=== PATIENT | male | born 1975 | race Caucasian/White ===

== ENCOUNTER 2017-12-24 13:45 | Inpatient (IN) | payer OTHER ==
[2017-12-24] MEDS ORDERED: MAGNESIUM HYDROXIDE 2,400 MG/30 ML ORAL.SUSP. PO (15:00)
[2017-12-24] MEDS ORDERED: oxyCODONE IR 5 MG TABLET PO (15:00)
[2017-12-24] MEDS ORDERED: PROCHLORPERAZINE 25 MG SUPP.RECT. PR (15:00)
[2017-12-24] MEDS ORDERED: MAG HYDROX/ALUMINUM HYD/SIMETH 30 ML ORAL.SUSP PO (15:00)
[2017-12-24] MEDS ORDERED: MORPHINE SULFATE 2 MG/ML DISP.SYRIN. IV (15:00)
[2017-12-24] MEDS ORDERED: PROCHLORPERAZINE 10 MG/2 ML VIAL. IV (15:00)
[2017-12-24] MEDS ORDERED: HEPARIN for IV BOLUS 10,000 UNIT/10 ML VIAL. IV (15:00)
[2017-12-24] MEDS ORDERED: HEPARIN 25,000UTS/500ML PREMIX 500 ML IV (15:00)
[2017-12-24] MEDS ORDERED: oxyCODONE/APAP 5/325 1 TAB TABLET PO (15:00)
[2017-12-24] MEDS ORDERED: IBUPROFEN 400 MG TABLET. PO (15:00)
[2017-12-24] MEDS ORDERED: CALCIUM CARBONATE 500 MG TAB.CHEW PO (15:00)
[2017-12-24] MEDS ORDERED: ONDANSETRON PF 4 MG/2 ML VIAL. IV (15:00)
[2017-12-24] MEDS ORDERED: ZOLPIDEM 5 MG TABLET. PO (15:00)
[2017-12-24] MEDS ORDERED: LABETALOL 20 MG/4 ML DISP.SYRIN. IVP (16:30)
[2017-12-24] MEDS: POTASSIUM CHLORIDE 20 MEQ TABLET.ER. PO (16:58)
[2017-12-24] MEDS: DOCUSATE SODIUM 100 MG CAPSULE. PO (19:41)
[2017-12-24] MEDS: VENLAFAXINE XR 37.5 MG CAP.ER.24H. PO (19:42)
[2017-12-24] MEDS: METOPROLOL SUCC 24HR ER 100 MG TAB.ER.24H. PO (19:43)
[2017-12-24] MEDS: cloNIDine HCL 0.2 MG TABLET PO ×2 (19:44→23:24)
[2017-12-24] MEDS: hydrALAZINE 20 MG/ML VIAL. IVP (23:23)
[2017-12-25 06:39] LABS: ADD MAN DIFF? NO
[2017-12-25 06:58] LABS: BASO # 0.1 x10^3/uL (0.0-0.2); BASO % 1 % (0-3); EOS # 0.3 x10^3/uL (0.0-0.7); EOS % 4 % (0-3); HEMATOCRIT 44.4 % (39.0-53.0); HEMOGLOBIN 15.4 g/dL (13.0-17.5); LYMPH % 26 % (24-48); MEAN CORPUSCULAR HEMOGLOBIN 30 pg (25-35); MEAN CORPUSCULAR HGB CONC 35 g/dL (31-37); MEAN CORPUSCULAR VOLUME 85 fL (79-100); MONO # 0.7 x10^3/uL (0.0-1.1); MONO % 10 % (0-9); NEUT # 4.4 x10^3uL (1.8-7.7); NEUT % 59 % (31-73); PLATELET COUNT 192 x10^3/uL (140-400); RED BLOOD COUNT 5.23 x10^6/uL (4.30-5.70); RED CELL DISTRIBUTION WIDTH 15.2 % (11.5-14.5); WHITE BLOOD COUNT 7.4 x10^3/uL (4.0-11.0)
[2017-12-25 07:07] LABS: ALBUMIN 3.3 g/dL (3.4-5.0); ALBUMIN/GLOBULIN RATIO 0.9 (1.0-1.7); ALK PHOS 59 U/L (46-116); ALT (SGPT) 86 U/L (16-63); ANION GAP 6 (6-14); AST (SGOT) 31 U/L (15-37); BLOOD UREA NITROGEN 11 mg/dL (8-26); BUN/CREATININE RATIO 11 (6-20); CALCIUM 8.4 mg/dL (8.5-10.1); CARBON DIOXIDE 30 mmol/L (21-32); CHLORIDE 106 mmol/L (98-107); GFR 81.9; GLUCOSE 132 mg/dL (70-99); MAGNESIUM 2.1 mg/dL (1.8-2.4); PHOSPHORUS 3.6 mg/dL (2.6-4.7); POTASSIUM 3.1 mmol/L (3.5-5.1); SODIUM 142 mmol/L (136-145); TOTAL BILIRUBIN 0.5 mg/dL (0.2-1.0)
[2017-12-25 07:54] LABS: TROPONINI < 0.017 ng/mL (0.000-0.055)
[2017-12-25] MEDS: DOCUSATE SODIUM 100 MG CAPSULE. PO ×2 (09:00→21:20)
[2017-12-25] MEDS: hydrALAZINE 20 MG/ML VIAL. IVP (09:08)
[2017-12-25] MEDS: PANTOPRAZOLE 40 MG TABLET.DR. PO (09:13)
[2017-12-25] MEDS: ACETAMINOPHEN 325 MG TABLET. PO (09:16)
[2017-12-25] MEDS: LOSARTAN POTASSIUM 50 MG TABLET. PO (11:43)
[2017-12-25 12:29] LABS: THYROXINE 6.8 ug/dL (4.5-12.0)
[2017-12-25] MEDS ORDERED: REGADENOSON 0.4 MG/5 ML DISP.SYRIN. IV (12:30)
[2017-12-25] MEDS: REGADENOSON 0.4 MG/5 ML DISP.SYRIN. IV (13:19)
[2017-12-25] MEDS: POTASSIUM CHLORIDE 20 MEQ TABLET.ER. PO (14:06)
[2017-12-25] MEDS ORDERED: MORPHINE SULFATE 2 MG/ML DISP.SYRIN. IV (15:45)
[2017-12-25] MEDS ORDERED: ONDANSETRON PF 4 MG/2 ML VIAL. IV (15:45)
[2017-12-25] MEDS ORDERED: hydrALAZINE 20 MG/ML VIAL. IVP (15:45)
[2017-12-25] MEDS ORDERED: ACETAMINOPHEN 325 MG TABLET. PO (15:45)
[2017-12-25] MEDS ORDERED: traMADol 50 MG TABLET PO (15:45)
[2017-12-25] MEDS ORDERED: DOCUSATE SODIUM 100 MG CAPSULE. PO (15:45)
[2017-12-25] MEDS: cloNIDine HCL 0.2 MG TABLET PO (17:41)
[2017-12-25] MEDS ORDERED: LABETALOL 20 MG/4 ML DISP.SYRIN. IVP (18:30)
[2017-12-25] MEDS: METOPROLOL TART IMMED RELEASE 50 MG TABLET. PO (21:21)
[2017-12-25] MEDS: VENLAFAXINE XR 37.5 MG CAP.ER.24H. PO (21:22)
[2017-12-26 04:36] LABS: ADD MAN DIFF? NO
[2017-12-26 04:53] LABS: BASO # 0.1 x10^3/uL (0.0-0.2); BASO % 1 % (0-3); EOS # 0.3 x10^3/uL (0.0-0.7); EOS % 4 % (0-3); HEMATOCRIT 46.4 % (39.0-53.0); HEMOGLOBIN 16.3 g/dL (13.0-17.5); LYMPH # 1.8 x10^3/uL (1.0-4.8); LYMPH % 22 % (24-48); MEAN CORPUSCULAR HEMOGLOBIN 30 pg (25-35); MEAN CORPUSCULAR HGB CONC 35 g/dL (31-37); MEAN CORPUSCULAR VOLUME 85 fL (79-100); MONO # 0.7 x10^3/uL (0.0-1.1); MONO % 9 % (0-9); NEUT # 5.1 x10^3uL (1.8-7.7); NEUT % 64 % (31-73); PLATELET COUNT 207 x10^3/uL (140-400); RED BLOOD COUNT 5.48 x10^6/uL (4.30-5.70); RED CELL DISTRIBUTION WIDTH 14.9 % (11.5-14.5)
[2017-12-26 05:15] LABS: ANION GAP 9 (6-14); BLOOD UREA NITROGEN 17 mg/dL (8-26); CALCIUM 8.8 mg/dL (8.5-10.1); CARBON DIOXIDE 28 mmol/L (21-32); CHLORIDE 107 mmol/L (98-107); CREATININE 1.1 mg/dL (0.7-1.3); GFR 73.4; GLUCOSE 122 mg/dL (70-99); POTASSIUM 3.2 mmol/L (3.5-5.1); SODIUM 144 mmol/L (136-145)
[2017-12-26] MEDS: LOSARTAN POTASSIUM 50 MG TABLET. PO (09:40)
[2017-12-26] MEDS: METOPROLOL TART IMMED RELEASE 50 MG TABLET. PO ×3 (09:41→19:12)
[2017-12-26] MEDS: DOCUSATE SODIUM 100 MG CAPSULE. PO ×2 (09:41→21:33)
[2017-12-26] MEDS: PANTOPRAZOLE 40 MG TABLET.DR. PO (09:41)
[2017-12-26] MEDS: POTASSIUM CHLORIDE 20 MEQ TABLET.ER. PO (21:33)
[2017-12-26] MEDS: cloNIDine HCL 0.2 MG TABLET PO (21:34)
[2017-12-26] MEDS: VENLAFAXINE XR 37.5 MG CAP.ER.24H. PO (21:34)
[2017-12-27 05:24] LABS: HEMATOCRIT 47.5 % (39.0-53.0); MEAN CORPUSCULAR HEMOGLOBIN 29 pg (25-35); MEAN CORPUSCULAR HGB CONC 34 g/dL (31-37); MEAN CORPUSCULAR VOLUME 86 fL (79-100); PLATELET COUNT 204 x10^3/uL (140-400); RED BLOOD COUNT 5.54 x10^6/uL (4.30-5.70); WHITE BLOOD COUNT 9.6 x10^3/uL (4.0-11.0)
[2017-12-27] MEDS: LOSARTAN POTASSIUM 50 MG TABLET. PO (08:43)
[2017-12-27] MEDS: PANTOPRAZOLE 40 MG TABLET.DR. PO (08:43)
[2017-12-27] MEDS: METOPROLOL TART IMMED RELEASE 50 MG TABLET. PO ×2 (08:44→21:17)
[2017-12-27] MEDS: DOCUSATE SODIUM 100 MG CAPSULE. PO ×2 (08:44→21:00)
[2017-12-27] MEDS ORDERED: POTASSIUM CHLORIDE 20 MEQ/15 ML ORAL LIQUID. FT (11:00)
[2017-12-27] MEDS ORDERED: POTASSIUM CHLORIDE 20 MEQ/15 ML ORAL LIQUID. PO (11:00)
[2017-12-27] MEDS: cloNIDine HCL 0.2 MG TABLET PO (13:30)
[2017-12-27] MEDS ORDERED: cloNIDine HCL 0.2 MG TABLET PO (14:00)
[2017-12-27] MEDS: hydrALAZINE 25 MG TABLET PO ×2 (15:34→21:18)
[2017-12-27] MEDS: hydroCHLOROthiazide 25 MG TABLET PO (15:34)
[2017-12-27] MEDS: VENLAFAXINE XR 37.5 MG CAP.ER.24H. PO (21:15)
[2017-12-28] MEDS: cloNIDine HCL 0.2 MG TABLET PO (00:09)
[2017-12-28 06:48] LABS: ANION GAP 10 (6-14); BLOOD UREA NITROGEN 24 mg/dL (8-26); CALCIUM 9.3 mg/dL (8.5-10.1); CARBON DIOXIDE 28 mmol/L (21-32); CHLORIDE 103 mmol/L (98-107); CREATININE 1.5 mg/dL (0.7-1.3); GFR 51.3; GLUCOSE 112 mg/dL (70-99); POTASSIUM 3.1 mmol/L (3.5-5.1); SODIUM 141 mmol/L (136-145)
[2017-12-28] MEDS: PANTOPRAZOLE 40 MG TABLET.DR. PO (10:01)
[2017-12-28] MEDS: DOCUSATE SODIUM 100 MG CAPSULE. PO (10:01)
[2017-12-28] MEDS: hydrALAZINE 25 MG TABLET PO (10:03)
[2017-12-28] MEDS: LOSARTAN POTASSIUM 50 MG TABLET. PO (10:03)
[2017-12-28] MEDS: hydroCHLOROthiazide 25 MG TABLET PO (10:04)
[2017-12-28] MEDS: METOPROLOL TART IMMED RELEASE 50 MG TABLET. PO (13:49)
[2017-12-28] MEDS: POTASSIUM CHLORIDE 20 MEQ TABLET.ER. PO (15:09)
== END 2017-12-28 19:29 | disposition home or self-care (01) | DRG 391 ==
LOC: 2 SOUTH 13:45
PROVIDERS: Internal Medicine
PROC: 5A09357 Assistance with Respiratory Ventilation, Less than 24 Consecutive Hours, Continuous Positive Airway Pressure (ICD-10-PCS; principal; 2017-12-24)
PROC: 5A09357 Assistance with Respiratory Ventilation, Less than 24 Consecutive Hours, Continuous Positive Airway Pressure (ICD-10-PCS; 2017-12-24)
PROC: 5A09357 Assistance with Respiratory Ventilation, Less than 24 Consecutive Hours, Continuous Positive Airway Pressure (ICD-10-PCS; 2017-12-24)
PROC: 5A09357 Assistance with Respiratory Ventilation, Less than 24 Consecutive Hours, Continuous Positive Airway Pressure (ICD-10-PCS; 2017-12-24)
DX: K21.9 Gastro-esophageal reflux disease without esophagitis (principal); I50.41 Acute combined systolic (congestive) and diastolic (congestive) heart failure; Z68.42 Body mass index [BMI] 45.0-49.9, adult; I11.0 Hypertensive heart disease with heart failure; E66.01 Morbid (severe) obesity due to excess calories; E87.6 Hypokalemia; R07.9 Chest pain, unspecified; Z82.49 Family history of ischemic heart disease and other diseases of the circulatory system; F17.210 Nicotine dependence, cigarettes, uncomplicated; N18.2 Chronic kidney disease, stage 2 (mild)
CPT/HCPCS: 36415; 78452; 80048; 80053; 83735; 84100; 84436; 84443; 84481; 84484; 85025; 85027; 93017; 93306; 94660; 95811; 96374; 96375; 96376; A9500; J0360; J2785

== ENCOUNTER 2019-11-10 21:58 | Inpatient (IN) | payer OTHER ==
[~2019-11-10] VITALS: Ht 175.3 cm; Wt 140.8 kg
[~2019-11-10 21:58] MED LIST: CLON0.2T PO; HYDR-2145 PO; HYDR-2868 PO; LOSA100T14 PO; METO-247 PO; METO100T7 PO; NIFE90TA49 PO; OMEP40CA45 PO; PANT20TA2 PO; VENL75CA6 PO
[2019-11-10 22:50] VITALS: BP 160/101
[2019-11-10] MEDS ORDERED: LORazepam 0.5 MG TABLET PO PRN (23:00)
[2019-11-10] MEDS ORDERED: IV DEXTROSE 5% 250 ML BAG. IV PRN (23:00)
[2019-11-10] MEDS ORDERED: DEXTROSE 50% 25 GM / 50ML DISP.SYRIN. IV PRN (23:00)
[2019-11-10] MEDS ORDERED: ZOLPIDEM 5 MG TABLET. PO PRN (23:00)
--- NOTE | 2019-11-10 23:00 | NUR ---
Admit to [facility] room 208 via EMS from [facility] ICU with Dx Chest Pain. Patient transferred for Cardiac Cath in the morning. A/O x 4. Pleasant. Steady gait. Orientated to room. Reviewed POC to include NPO after midnight and Cardiac Cath in AM. Patient verbalized understanding. Resting in chair at bedside watching TV with call light at hand.
[2019-11-11] VITALS (14 sets, daily range): BP systolic 121–181; BP diastolic 83–106
[2019-11-11] MEDS: hydrALAZINE 20 MG/ML VIAL. IVP PRN (03:39)
[2019-11-11 05:16] LABS: BASO # 0.1 x10^3/uL (0.0-0.2); BASO % 1 % (0-3); EOS # 0.4 x10^3/uL (0.0-0.7); EOS % 5 % (0-3); HEMATOCRIT 48.4 % (39.0-53.0); HEMOGLOBIN 16.7 g/dL (13.0-17.5); LYMPH # 2.2 x10^3/uL (1.0-4.8); LYMPH % 29 % (24-48); MEAN CORPUSCULAR HEMOGLOBIN 30 pg (25-35); MEAN CORPUSCULAR HGB CONC 34 g/dL (31-37); MEAN CORPUSCULAR VOLUME 88 fL (79-100); MONO # 0.7 x10^3/uL (0.0-1.1); MONO % 9 % (0-9); NEUT # 4.4 x10^3/uL (1.8-7.7); NEUT % 57 % (31-73); PLATELET COUNT 199 x10^3/uL (140-400); RED BLOOD COUNT 5.47 x10^6/uL (4.30-5.70); RED CELL DISTRIBUTION WIDTH 15.1 % (11.5-14.5); WHITE BLOOD COUNT 7.7 x10^3/uL (4.0-11.0)
[2019-11-11 05:40] LABS: ALBUMIN 3.5 g/dL (3.4-5.0); ALBUMIN/GLOBULIN RATIO 0.9 (1.0-1.7); GFR 81.2; POTASSIUM 3.3 mmol/L (3.5-5.1); TOTAL BILIRUBIN 0.7 mg/dL (0.2-1.0); TOTAL PROTEIN 7.2 g/dL (6.4-8.2)
[2019-11-11] MEDS: ACETAMINOPHEN 500 MG TABLET PO PRN ×2 (06:12→09:05)
--- NOTE | 2019-11-11 06:19 | NUR ---
BP 181/106 with HR 76. Gave Hydralazine 10mg IVP as ordered PRN Hypertension. Re-check BP 152/97 with HR 84.
[2019-11-11] MEDS: INSULIN LISPRO 300 UNITS/3 ML VIAL. SQ SCH ×3 (08:00→17:00)
[2019-11-11] MEDS: METOPROLOL SUCC 24HR ER 50 MG TAB.ER.24H. PO SCH (08:58)
[2019-11-11] MEDS: PANTOPRAZOLE 40 MG TABLET.DR. PO SCH (08:59)
[2019-11-11] MEDS: ASPIRIN ENTERIC COATED 81 MG TABLET.DR. PO SCH (08:59)
[2019-11-11] MEDS: POTASSIUM CHLORIDE 20 MEQ TABLET.ER. PO SCH ×3 (09:00→17:21)
[2019-11-11] MEDS ORDERED: POTASSIUM CHLORIDE 20 MEQ TABLET.ER. PO SCH (09:00)
[2019-11-11] MEDS: hydrALAZINE 25 MG TABLET PO SCH ×2 (09:01→20:21)
[2019-11-11] MEDS: LOSARTAN POTASSIUM 50 MG TABLET. PO SCH (09:02)
--- NOTE | 2019-11-11 10:14 | HP ---
ADMIT DATE: 11/11/2019 HISTORY OF PRESENT ILLNESS: The patient is a 44-year-old male patient who was admitted to [facility] with increasing shortness of breath that has been going on for the last few days and has been worsened particularly into the last 2 days prior to admission. He complained of some chest pain, described as heavy weight, somebody sitting on his chest. He has had complained of orthopnea and paroxysmal nocturnal dyspnea, however, denied any cough, phlegm or hemoptysis. His blood pressure has been extremely elevated even after he takes his blood pressure medication. He denied taking any high sodium diet or any nonsteroidal anti-inflammatory medication. He stated he was compliant to his medication. He was extensively investigated and on arrival his blood pressure was extremely high at 212/137. Initial lab work showed he has mild hypokalemia and his liver enzymes slightly elevated. His D-dimer was slightly high, so that he underwent CT angio of the chest which showed no pulmonary arterial thromboembolic disease, no infiltrates, and borderline sized right hilar lymph nodes. While there, he has 3 sets of cardiac enzymes, which were trending down. He was seen by the Cardiology team and has had an echocardiogram, which showed that the patient's left ventricular systolic function is normal, ejection fraction is 60-65%, he has normal left ventricular segmental wall motion, no evidence of significant pericardial effusion. Given the multiple risk factors for premature coronary artery disease and strong family history, a decision was made to transfer him [facility] with a plan to do cardiac catheterization and possible angioplasty. PAST MEDICAL HISTORY: Significant for hypertension, hyperlipidemia, type 2 diabetes mellitus, nonalcoholic steatohepatitis, morbid obesity, and obstructive sleep apnea. PAST SURGICAL HISTORY: Significant for vasectomy. ALLERGIES: He has no known drug allergies. MEDICATIONS: The patient is currently on following medications: He is on enteric-coated aspirin 81 mg once a day, atorvastatin calcium 20 mg once a day, he is on clonidine 0.2 mg twice a day, hydralazine 25 mg twice a day, metoprolol succinate 150 mg once a day, nifedipine 30 mg for a total of 90 mg once a day, losartan potassium 100 mg once a day, potassium chloride 20 mEq once a day, hydrochlorothiazide 25 mg once a day, and omeprazole 40 mg once a day. FAMILY HISTORY: He has 1 brother and sister, older in 1 sister and his sister is diabetic. His mother is still alive, has coronary artery bypass graft surgery. Father at the age of 60 because of myocardial infarction. SOCIAL HISTORY: He is , has 5 daughters and 1 son. He quit smoking about 40 years ago. He drinks alcohol occasionally. 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 REVIEW OF SYSTEMS: As per history of present illness. PHYSICAL EXAMINATION GENERAL: When I saw him this morning, he was resting slightly propped up in bed, in no apparent respiratory distress, awake, alert. On questioning him, he denied any complaint. On examined him, there was no pallor, jaundice, cyanosis or thyromegaly. No jugular venous distention. No limb edema. VITAL SIGNS: His heart rate was 84, blood pressure 152/97, temperature 98, respiratory rate was 28, and oxygen saturation was 93% on room air. The rest of clinical exam is stable. LABORATORY DATA: His lab work this morning showed a white cell count 7700, hemoglobin 16.7, hematocrit 48, MCV 88, and platelet count of 199,000. His chemistry showed a serum sodium 141, potassium 3.3, chloride 103, bicarbonate 28, anion gap of 9, BUN 19, creatinine 1, estimated GFR was 81 mL per minute, his glucose 177, and calcium was 9. Total bilirubin and alkaline phosphatase were normal. AST and ALT elevated. Total protein 7.2 and albumin 3.5. SUMMARY: In summary, this is a 44-year-old male patient who was transferred from [facility] where he presented with chest pain with typical features concerning for unstable angina. Given his strong family history of premature coronary artery disease, he was transferred to [facility] for cardiac catheterization. Other problems include: 1. Acute on chronic probably diastolic congestive heart failure. 2. Accelerated hypertension. 3. Hyperlipidemia. 4. Type 2 diabetes mellitus. 5. Hypokalemia. MAREN VARGAS MD DR: BRANDI/venecia JOB#: [id number] / [id number]
[2019-11-11] MEDS: cloNIDine HCL 0.2 MG TABLET PO SCH ×2 (12:49→20:22)
[2019-11-11] MEDS: FUROSEMIDE 40 MG/4 ML VIAL. IVP SCH ×2 (14:00→16:32)
--- NOTE | 2019-11-11 14:24 | NUR ---
SS following for discharge planning. SS reviewed pt chart. Pt is from home and is currently on room air. SS will continue to follow for discharge planning.
[2019-11-11] MEDS ORDERED: LIDOCAINE 1% PF 2 ML VIAL. ONE (14:45)
[2019-11-11] MEDS ORDERED: IOHEXOL 300 MG/ML 100ML VIAL. ONE (14:46)
[2019-11-11] MEDS ORDERED: fentaNYL PF VIAL 250 MCG/5 ML VIAL ONE (15:12)
[2019-11-11] MEDS ORDERED: NITROGLYCERIN 200 MCG/2 ML SYRINGE FOR CATH/VASC LAB. ONE (15:12)
[2019-11-11] MEDS ORDERED: HEPARIN for IV BOLUS 10,000 UNIT/10 ML VIAL. ONE (15:12)
[2019-11-11] MEDS ORDERED: VERAPAMIL 5 MG/2 ML VIAL. ONE (15:12)
[2019-11-11] MEDS ORDERED: MIDAZOLAM HCL/PF 5 MG/5 ML VIAL. ONE (15:12)
[2019-11-11] MEDS ORDERED: VERAPAMIL 5 MG/2 ML VIAL. IART ONE (15:15)
[2019-11-11] MEDS ORDERED: IOHEXOL 300 MG/ML 100ML VIAL. IART ONE (15:15)
[2019-11-11] MEDS ORDERED: LIDOCAINE 1% PF 2 ML VIAL. INJ ONE (15:15)
[2019-11-11] MEDS ORDERED: HEPARIN for IV BOLUS 10,000 UNIT/10 ML VIAL. IART ONE (15:15)
[2019-11-11] MEDS ORDERED: MIDAZOLAM HCL/PF 2 MG/2 ML VIAL. IV ONE (15:15)
[2019-11-11] MEDS ORDERED: CONTRAST GIVEN. MC PRN (15:15)
[2019-11-11] MEDS ORDERED: NITROGLYCERIN 200 MCG/2 ML SYRINGE FOR CATH/VASC LAB. IART ONE (15:15)
[2019-11-11] MEDS ORDERED: fentaNYL PF VIAL 100 MCG/2 ML VIAL IV ONE (15:15)
[2019-11-11] MEDS ORDERED: MIDAZOLAM HCL/PF 5 MG/5 ML VIAL. IV ONE (16:00)
[2019-11-11] MEDS ORDERED: fentaNYL PF VIAL 250 MCG/5 ML VIAL IV ONE (16:00)
--- NOTE | 2019-11-11 16:12 | CARD ---
MR#: [id number] Date of Study: 11/11/2019 Ordering Physician: KALEB MAY, Referring Physician: KALEB MAY Tech: TACHO UMLLER RTR APPROVED REPORT Technologist: TACHO MULLER RTR Nurse: ARRON SANTIAGO RN Procedure(s) performed: Left heart catheterization, selective coronary angiography and left ventricul ography via right transradial approach MODERATE SEDATION TIME: 46 MINUTES FLUORO TIME: 6.7 MIN DOSE: 69.9 GYCM2 CONTRAST: 110 CC OMNI INDICATION The indication(s) include : unstable angina . CSHA Clinical Frailty Scale CSHA Clinical Frailty Scale: Managing Well Heart Failure Heart Failure: No PROCEDURE NARRATIVE After explaining the risks, benefits and alternative options, informed consent was obtained from andrea ent. Patient was brought to the cardiac Edge [facility]utter and right wrist was prepped and draped in the usual fashion after confirming a positive modified Dipak's test. Arterial access was obtained in the [facility] radial artery and a 6 Korean sheath was inserted. 6 Korean Chavo and 6 Korean JL 3.5 catheters we re used to perform selective angiography of the right and left coronary arteries. 6 Korean pigtail c atheter was used to perform left ventriculography. Patient tolerated the procedure well. Hemostasis was achieved using TR band. There were no immediate complications. The following findings were not ed. FINDINGS 1. Hemodynamics: Left ventricular end-diastolic pressure of 24 mmHg consistent with mild acute on ch ronic diastolic heart failure. No pullback gradient across the aortic valve. 2. Left ventriculography: Normal left ventricle systolic function with ejection fraction estimated at 65%. No significant mitral regurgitation seen. 3. Coronary angiography: a. The left main coronary artery arose from the left sinus of Valsalva, gave rise to the left anteri or descending and left circumflex arteries and did not show any significant stenosis. b. The left anterior descending artery did not show any significant stenosis. c. The left circumflex artery did not show any significant stenosis. d. The right coronary artery was a large and dominant vessel arising from the right sinus of Valsalv a that did not show any significant stenosis. Conclusion 1. No significant coronary artery disease 2. Normal left ventricle systolic function with ejection fraction estimated at 65%. Signed by : Kaleb May, Electronically Approved : 11/11/2019 16:11:15
--- NOTE | 2019-11-11 16:12 | PDOC ---
MODERATE SEDATION ASSESSMENT RISKS/ALTERNATIVES Risks/Alternatives Risks and alternatives of this type of sedation and procedure discussed with: RISK/ALTERNATIVES: Patient H & P ON CHART H & P H & P on chart and reviewed for co-morbid conditions and appropriate labs. H&P ON CHART: Yes STATUS PREG STATUS ASSESSED: N/A MEDS/ALLERGIES REVIEWED Meds/Allergies Reviewed Medications and Allergies including time and route of recently administered narcotics and sedatives. MEDS/ALLERGIES REVIEWED: Yes ASA RATING ASA RATING: II AIRWAY ASSESSMENT Airway Assessment Airway patency, oral function limitations, presence of caps, crowns, dentures, partials, and ability to extend neck assessed. AIRWAY ASSESSMENT: Yes MALLAMPATI SCORE MALLAMPATI SCORE: II PRE-SEDATION ASSESSMENT PRE-SEDATION ASSESSMENT: Yes KALEB MAY MD Nov 11, 2019 16:12
[2019-11-11] MEDS ORDERED: 0.9 % SODIUM CHLORIDE 10 ML DISP.SYRIN. IV PRN (16:15)
[2019-11-11] MEDS: ENOXAPARIN 40 MG/0.4 ML SYRINGE. SQ SCH ×2 (16:33→20:22)
[2019-11-11] MEDS: ATORVASTATIN CALCIUM 20 MG TABLET PO SCH (20:21)
[2019-11-12 03:55] VITALS: BP 167/103
[2019-11-12 07:00] VITALS: BP 191/119
[2019-11-12] MEDS: POTASSIUM CHLORIDE 20 MEQ TABLET.ER. PO SCH ×3 (08:43→17:41)
[2019-11-12] MEDS: LOSARTAN POTASSIUM 50 MG TABLET. PO SCH (08:44)
[2019-11-12] MEDS: METOPROLOL SUCC 24HR ER 50 MG TAB.ER.24H. PO SCH (08:44)
[2019-11-12] MEDS: ASPIRIN ENTERIC COATED 81 MG TABLET.DR. PO SCH (08:45)
[2019-11-12] MEDS: cloNIDine HCL 0.2 MG TABLET PO SCH ×2 (08:46→20:43)
[2019-11-12] MEDS: ACETAMINOPHEN 500 MG TABLET PO PRN (08:46)
[2019-11-12] MEDS: ENOXAPARIN 40 MG/0.4 ML SYRINGE. SQ SCH ×2 (08:48→20:43)
[2019-11-12] MEDS: hydrALAZINE 25 MG TABLET PO SCH (08:48)
[2019-11-12] MEDS: FUROSEMIDE 40 MG/4 ML VIAL. IVP SCH ×2 (08:48→13:40)
[2019-11-12] MEDS: PANTOPRAZOLE 40 MG TABLET.DR. PO SCH (08:48)
--- NOTE | 2019-11-12 09:05 | PN ---
DATE: 11/12/2019 SUBJECTIVE: The patient was transferred yesterday from [facility] and underwent cardiac catheterization, which basically showed no significant coronary artery disease, he has normal left ventricular systolic function, ejection fraction estimated 65%. When I saw him this morning, the patient was not feeling well, he said that he was more short of breath, he had chest pain and pain in both shoulder areas. His blood pressure was high. PHYSICAL EXAMINATION: GENERAL: When I saw him this morning, he was resting slightly propped up in bed, no apparent respiratory distress. No pallor, jaundice, cyanosis or thyromegaly. No jugular venous distension. No lower limb edema. VITAL SIGNS: His heart rate was 74, blood pressure was 167/103, temperature 97.4, respiratory rate was 16 and oxygen saturation was 98%. HEAD, EYES, EARS, NOSE AND THROAT: Normocephalic, atraumatic. NECK: Supple. CARDIAC: Normal first and second heart sounds. No gallop or murmur. CHEST: Clear to auscultation. No crepitation or rhonchi. ABDOMEN: Distended, soft, nontender. No guarding or rigidity. No organomegaly. All hernial orifices are intact. Bowel sounds normal. NEUROLOGICAL: He was awake, alert, responding appropriately. All cranial nerves are intact. He moves extremities without difficulty. LABORATORY DATA: His lab work as of yesterday showed a white cell count 7700, hemoglobin 16.7, hematocrit 48, MCV 88 and platelet count of 199,000. His serum sodium 141, potassium 3.3, chloride 103, bicarbonate 28, anion gap of 10, BUN 9, creatinine 1, estimated GFR was 81 mL per minute, his glucose 177, calcium was 9. Total bilirubin and alkaline phosphatase normal. AST and ALT slightly elevated. Total protein was 7.2, albumin was 3.5. ASSESSMENT: 1. Chest pain with typical features, concerning for unstable angina; however, cardiac catheterization showed normal coronary arteries. 2. [id number] probably diastolic congestive heart failure. 3. Accelerated hypertension. 4. Hyperlipidemia. 5. Type 2 diabetes mellitus. 6. Hypokalemia. PLAN: My plan is to repeat his lab work, continue with all his antihypertensive medications, I will double the dose of hydralazine to 50 mg twice a day. MAREN VARGAS MD DR: Tank JOB#: [id number] / [id number]
[2019-11-12] MEDS: INSULIN LISPRO 300 UNITS/3 ML VIAL. SQ SCH ×3 (09:08→17:43)
[2019-11-12 09:57] LABS: HEMATOCRIT 50.2 % (39.0-53.0); HEMOGLOBIN 17.4 g/dL (13.0-17.5); RED BLOOD COUNT 5.66 x10^6/uL (4.30-5.70); RED CELL DISTRIBUTION WIDTH 15.1 % (11.5-14.5); WHITE BLOOD COUNT 8.2 x10^3/uL (4.0-11.0)
[2019-11-12 10:26] LABS: ALBUMIN 3.8 g/dL (3.4-5.0); ALBUMIN/GLOBULIN RATIO 0.9 (1.0-1.7); CALCIUM 8.8 mg/dL (8.5-10.1); GFR 81.2; POTASSIUM 3.5 mmol/L (3.5-5.1); TOTAL BILIRUBIN 0.6 mg/dL (0.2-1.0); TOTAL PROTEIN 7.9 g/dL (6.4-8.2)
[2019-11-12 11:00] VITALS: BP 168/113
--- NOTE | 2019-11-12 12:47 | PDOC ---
MAYRA JOAQUIN COT ASSEMBLER 11/12/19 1247: CARDIO Progress Notes Date and Time Date of Service 11/12/18 Time of Evaluation 1245 Subjective Subjective: No Palpitations, No Dizziness, Other (SOA improved) Comments: episode of chest pressure this morning when BP significantly elevated. Vitals Vitals Vital Signs Date Time Temp Pulse Resp B/P (MAP) Pulse Ox O2 Delivery O2 Flow Rate FiO2 11/12/19 11:00 98.2 70 16 168/113 (131) 93 Room Air 98.2 11/11/19 16:00 2.0 Weight Weight [ ] Input and Output Intake and Output Intake and Output 11/12/19 07:00 Intake Total 1260 ml Output Total 3400 ml Balance -2140 ml Intake Oral 1260 ml Output Urine Total 3400 ml # Voids 1 Laboratory Labs Laboratory Tests Test 11/11/19 16:27 11/11/19 21:12 11/12/19 07:54 11/12/19 09:20 Glucose (Fingerstick) 147 mg/dL (70-99) 281 mg/dL (70-99) 235 mg/dL (70-99) White Blood Count 8.2 x10^3/uL (4.0-11.0) Red Blood Count 5.66 x10^6/uL (4.30-5.70) Hemoglobin 17.4 g/dL (13.0-17.5) Hematocrit 50.2 % (39.0-53.0) Mean Corpuscular Volume 89 fL (79-100) Mean Corpuscular Hemoglobin 31 pg (25-35) Mean Corpuscular Hemoglobin Concent 35 g/dL (31-37) Red Cell Distribution Width 15.1 % (11.5-14.5) Platelet Count 203 x10^3/uL (140-400) Sodium Level 140 mmol/L (136-145) Potassium Level 3.5 mmol/L (3.5-5.1) Chloride Level 102 mmol/L (98-107) Carbon Dioxide Level 29 mmol/L (21-32) Anion Gap 9 (6-14) Blood Urea Nitrogen 17 mg/dL (8-26) Creatinine 1.0 mg/dL (0.7-1.3) Estimated GFR (Cockcroft-Gault) 81.2 BUN/Creatinine Ratio 17 (6-20) Glucose Level 258 mg/dL (70-99) Calcium Level 8.8 mg/dL (8.5-10.1) Total Bilirubin 0.6 mg/dL (0.2-1.0) Aspartate Amino Transf (AST/SGOT) 85 U/L (15-37) Alanine Aminotransferase (ALT/SGPT) 171 U/L (16-63) Alkaline Phosphatase 69 U/L (46-116) Total Protein 7.9 g/dL (6.4-8.2) Albumin 3.8 g/dL (3.4-5.0) Albumin/Globulin Ratio 0.9 (1.0-1.7) Test 11/12/19 12:10 Glucose (Fingerstick) 216 mg/dL (70-99) Physical Exam HEENT: Neck Supple W Full Motion Chest: Symmetric LUNGS: Clear to Auscultation Heart: S1S2, RRR Abdomen: Soft N/T Extremities: Other (trace bilateral LE edema) Neurology: alert, oriented, follow commands Assessment Assessment 1. Chest pain, had episode again this morning when blood pressure significantly elevated. Echo showed normal LV systolic function. Cath showed no significant coronary artery disease 2. Acute on chronic probable diastolic CHF; better compensated following diuresis. Cath with elevated LVEDP. Good UOP overnight 3. Accelerated hypertension; remains elevated. Increase hydralazine for better control. 4. Hyperlipidemia: Continue statin therapy 5. Diabetes, II: Per IM 6. Hypokalemia: Replaced Recommendations Increase hydralazine for blood pressure control If remains elevated tomorrow, will convert metoprolol to labetalol Continue IV diuresis Discussed 2Gm Na diet adn 2000cc FR Encouraged lifestyle modification/weight loss. Mobile Marketing Specialist consult Anticipate discharge tomorrow. KALEB MAY MD 11/12/19 1724: CARDIO Progress Notes Assessment Assessment Patient seen and examined. Agree with CHIEF PROJECTIONIST's assessment and plan. Cardiac catheterization did not show any significant coronary artery disease Acute on chronic diastolic heart failure better compensated with diuresis Agree with increasing hydralazine dose for better blood pressure control MAYRA JOAQUIN APRN Nov 12, 2019 12:47 KALEB MAY MD Nov 12, 2019 17:24
[2019-11-12 15:00] VITALS: BP 174/109
[2019-11-12 19:00] VITALS: BP 184/117
[2019-11-12] MEDS: ATORVASTATIN CALCIUM 20 MG TABLET PO SCH (20:43)
[2019-11-12 23:00] VITALS: BP 172/110
[2019-11-12] MEDS: hydrALAZINE 20 MG/ML VIAL. IVP PRN ×2 (23:48→23:54)
[2019-11-13 03:00] VITALS: BP 170/104
[2019-11-13] MEDS: ACETAMINOPHEN 500 MG TABLET PO PRN (05:58)
[2019-11-13 07:14] VITALS: BP 218/116
[2019-11-13] MEDS: PANTOPRAZOLE 40 MG TABLET.DR. PO SCH (08:14)
[2019-11-13] MEDS: LOSARTAN POTASSIUM 50 MG TABLET. PO SCH (08:15)
[2019-11-13] MEDS: ASPIRIN ENTERIC COATED 81 MG TABLET.DR. PO SCH (08:15)
[2019-11-13] MEDS: FUROSEMIDE 40 MG/4 ML VIAL. IVP SCH (08:16)
[2019-11-13] MEDS: METOPROLOL SUCC 24HR ER 50 MG TAB.ER.24H. PO SCH (08:16)
[2019-11-13] MEDS: POTASSIUM CHLORIDE 20 MEQ TABLET.ER. PO SCH ×3 (08:16→17:41)
[2019-11-13] MEDS: ENOXAPARIN 40 MG/0.4 ML SYRINGE. SQ SCH ×2 (08:17→21:17)
[2019-11-13] MEDS ORDERED: cloNIDine TTS-2 1 PATCH PATCH TD SCH (09:00)
[2019-11-13] MEDS: INSULIN LISPRO 300 UNITS/3 ML VIAL. SQ SCH ×3 (09:43→17:45)
--- NOTE | 2019-11-13 10:10 | RAD ---
EXAM: New scale and color Doppler renal artery sonogram. HISTORY: Hypertension. TECHNIQUE: New scale and color Doppler sonographic imaging of the kidneys and renal arteries with spectral waveform analysis was performed. COMPARISON: None. FINDINGS: The right kidney measures 13.8 cm [id number]. The left kidney measures 14.4 cm lfvi-[id number]. There is trace right hydronephrosis and moderate left hydronephrosis. The bladder is unremarkable. The ureteral jets are both seen. There is a cyst within the right kidney measuring 1.6 cm. There are normal peak systolic velocities within the renal arteries. There are normal renal artery to aorta velocity ratios. IMPRESSION: 1. Trace right and moderate left hydronephrosis. The ureteral jets are both seen. 2. Small simple appearing right renal cyst. 3. No Doppler evidence of greater than 60% stenosis involving the renal arteries. Electronically signed by: Yojana Abraham MD (11/13/2019 10:07 AM) [id number]
[2019-11-13 10:24] VITALS: BP 200/102
--- NOTE | 2019-11-13 10:30 | PN ---
DATE: SUBJECTIVE: The patient is resting, slightly propped up in bed, in no apparent respiratory distress. He continued to complain of severe headache and blood pressure continued to be extremely high. In fact, his blood pressure this morning was 218/116. Denied any other complaints, in particular shortness of breath. Has had his cardiac catheterization done yesterday successfully and showed no evidence of any obstructive coronary artery disease, ejection fraction was normal. PHYSICAL EXAMINATION: GENERAL: When I examined him, he looked well and was clearly in no apparent respiratory distress. No pallor, jaundice, cyanosis or thyromegaly. No jugular venous distension. No lower limb edema. VITAL SIGNS: His heart rate was 71, blood pressure was 218/116, temperature 97.8, respiratory rate was 18 and oxygen saturation was 91% on room air. The rest of clinical exam is stable. His intake was 1260, output was 3400. LABORATORY DATA: As of yesterday, his white cell count was 8200, hemoglobin 17, hematocrit 50, MCV 89 and platelet count 103,000. Serum sodium 140, potassium 3.5, chloride 102, bicarbonate 29, anion gap of 9, BUN 17, creatinine 1, estimated GFR was 81 mL per minute. His glucose was 158, calcium was 8.8. Total bilirubin and alkaline phosphatase was normal. AST, ALT slightly elevated. Total protein was 7.9, albumin 3.8. ASSESSMENT AND PLAN: Chest pain with normal coronary arteries and echocardiogram showed normal left ventricular systolic function. Acute on chronic diastolic congestive heart failure, seems to be much better controlled. Accelerated hypertension for which I have increased hydralazine to 100 mg twice a day and also the Procardia to 60 mg twice a day. I discontinued the oral clonidine. Because of possible rebound phenomenon, I put him on a TTS 2 patch. Hyperlipidemia, for which he is on statin. Type 2 diabetes mellitus, seems to be reasonably, although not optimally controlled. Hypokalemia, resolving. I also ordered renal artery Doppler to rule out renal artery stenosis and repeat all his labs tomorrow morning. MAREN VARGAS MD DR: BRANDI/venecia JOB#: [id number] / [id number]
[2019-11-13] MEDS: LABETALOL HCL 200 MG TABLET PO SCH ×2 (11:09→21:16)
--- NOTE | 2019-11-13 13:35 | PDOC ---
CARDIO Progress Notes Date and Time Date of Service 11/13/19 Time of Evaluation 1300 Subjective Subjective: No Chest Pain, No Palpitations, No Dizziness, Other (SOA improved) Vitals Vitals Vital Signs Date Time Temp Pulse Resp B/P (MAP) Pulse Ox O2 Delivery O2 Flow Rate FiO2 11/13/19 11:09 75 200/102 11/13/19 10:24 97.9 18 92 Room Air 97.9 Weight Weight [ ] Input and Output Intake and Output Intake and Output 11/13/19 07:00 Intake Total 1220 ml Output Total 3775 ml Balance -2555 ml Intake Oral 1220 ml Output Urine Total 3775 ml # Voids 1 Laboratory Labs Laboratory Tests Test 11/12/19 17:39 11/12/19 21:07 11/13/19 07:18 11/13/19 11:48 Glucose (Fingerstick) 219 mg/dL (70-99) 166 mg/dL (70-99) 205 mg/dL (70-99) 302 mg/dL (70-99) Physical Exam HEENT: Neck Supple W Full Motion Chest: Symmetric LUNGS: Clear to Auscultation Heart: S1S2, RRR Abdomen: Soft N/T Extremities: Other (trace bilateral LE edema) Neurology: alert, oriented, follow commands Assessment Assessment 1. Chest pain, had episode again this morning when blood pressure significantly elevated. Echo showed normal LV systolic function. Cath showed no significant coronary artery disease 2. Acute on chronic probable diastolic CHF; better compensated following diuresis. Cath with elevated LVEDP. Good UOP overnight again 3. Accelerated hypertension; remains elevated. 4. Hyperlipidemia: Continue statin therapy 5. Diabetes, II: Per IM 6. Hypokalemia: Replaced Recommendations Convert lasix to oral Hydralazine increased Stop metoprolol. Add labetalol for better rate control MAYRA JOAQUIN APRN Nov 13, 2019 13:35
--- NOTE | 2019-11-13 13:43 | PDOC2 ---
CONSULT Date of Consult Date of Consult DATE: 11/13/19 TIME: 13:34 Reason for Consult Reason for Consult: HTN AND HYDRONEPROSIS Referring Physician Referring Physician: ALICIA Identification/Chief Complaint Chief Complaint SOB Source Source: Chart review, Patient History of Present Illness Reason for Visit: THIS IS A 44 YR OLD WITH SOB AND CHEST PAIN. CURRENTLY UNDERGOING CARDIOLOGY EVALUATION. NOTED TO HAVE DIFFICULT TO CONTROL HTN AND MILD HYPOKALEMIA ON ADMIT. RENAL FXN WNL. IMAGING OF RENAL ARTERY WAS WNL BUT SHOWED BILATERAL HYDRONEPHROSIS. HAS HX OF DM II AND HTN OF LONG STANDING DURATION BUT HAS NOT HAD ANY CKD. NO NEPHROTOXINS. NO HX DIAGNOSIS. BUT DOES STATE THAT HE HAS DIFFICULTY EMPTYING HIS BLADDER Past Medical History Cardiovascular: HTN Heme/Onc: No pertinent hx Hepatobiliary: No pertinent hx Psych: No pertinent hx Rheumatologic: No pertinent hx Infectious disease: No pertinent hx Renal/: No pertinent hx Endocrine: No pertinent hx Past Surgical History Past Surgical History: No pertinent history Family History Family History: Coronary Artery Disease Social History ALCOHOL: none Drugs: None Current Medications Current Medications Current Medications Acetaminophen (Tylenol) 500 mg PRN Q6HRS PRN PO MILD PAIN / TEMP Last administered on 11/13/19at 05:58; Start 11/10/19 at 22:45 Aspirin (Ecotrin) 81 mg DAILYWBKFT PO Last administered on 11/13/19at 08:15; Start 11/11/19 at 08:00 Atorvastatin Calcium (Lipitor) 20 mg QHS PO Last administered on 11/12/19at 20:43; Start 11/11/19 at 21:00 Insulin Human Lispro (HumaLOG) 0-5 UNITS TIDWMEALS SQ Last administered on 11/13/19at 12:24; Start 11/11/19 at 08:00 Dextrose (Dextrose 50%-Water Syringe) 12.5 gm PRN Q15MIN PRN IV SEE COMMENTS; Start 11/10/19 at 23:00 Dextrose (Iv Dextrose 5%) 250 ml PRN Q15MIN PRN IV SEE COMMENTS; Start 11/10/19 at 23:00 Enoxaparin Sodium (Lovenox 40mg Syringe) 40 mg BID SQ Last administered on 11/13/19at 08:17; Start 11/11/19 at 09:00 Furosemide (Lasix) 40 mg BID92 IVP Last administered on 11/13/19at 08:16; Start 11/11/19 at 09:00 Lorazepam (Ativan) 0.5 mg PRN Q8HRS PRN PO ANXIETY / AGITATION; Start 11/10/19 at 23:00 Losartan Potassium (Cozaar) 100 mg DAILY PO Last administered on 11/13/19at 08:15; Start 11/11/19 at 09:00 Metoprolol Succinate (Toprol Xl) 150 mg DAILY PO Last administered on 11/13/19at 08:16; Start 11/11/19 at 09:00; Stop 11/13/19 at 10:57; Status DC Nifedipine (Procardia Xl) 90 mg DAILY PO Last administered on 11/12/19at 08:45; Start 11/11/19 at 09:00; Stop 11/13/19 at 08:18; Status DC Pantoprazole Sodium (Protonix) 40 mg DAILYAC PO Last administered on 11/13/19at 08:14; Start 11/11/19 at 07:30 Potassium Chloride (Klor-Con) 20 meq TID PO Last administered on 11/11/19at 08:59; Start 11/11/19 at 09:00; Stop 11/11/19 at 16:04; Status DC Zolpidem Tartrate (Ambien) 5 mg PRN QHS PRN PO INSOMNIA, MAY REPEAT IN 1HR; Start 11/10/19 at 23:00 Clonidine HCl (Catapres) 0.2 mg BID PO Last administered on 11/12/19at 20:43; Start 11/11/19 at 09:00; Stop 11/13/19 at 08:24; Status DC Hydralazine HCl (Apresoline) 25 mg BID PO Last administered on 11/12/19at 08:48; Start 11/11/19 at 09:00; Stop 11/12/19 at 12:51; Status DC Hydralazine HCl (Apresoline Inj) 10 mg PRN Q3HRS PRN IVP ELEVATED BP, SEE COMMENTS Last administered on 11/12/19at 23:54; Start 11/10/19 at 23:15 Potassium Chloride (Klor-Con) 20 meq TIDWMEALS PO Last administered on 11/13/19at 12:20; Start 11/11/19 at 09:00 Lidocaine HCl (Xylocaine-Mpf 1% 2ml Vial) 2 ml STK-MED ONCE .ROUTE ; Start 11/11/19 at 14:45; Stop 11/11/19 at 14:45; Status DC Heparin Sodium/ Sodium Chloride 500 ml @ As Directed STK-MED ONCE .ROUTE ; Start 11/11/19 at 14:45; Stop 11/11/19 at 14:45; Status DC Iohexol (Omnipaque 300 Mg/ml) 100 ml STK-MED ONCE .ROUTE ; Start 11/11/19 at 14:46; Stop 11/11/19 at 14:46; Status DC Nitroglycerin (Nitroglycerin) 200 mcg 1X ONCE IART Last administered on 11/11/19at 15:15; Start 11/11/19 at 15:15; Stop 11/11/19 at 15:16; Status DC Verapamil HCl (Verapamil) 2.5 mg 1X ONCE IART Last administered on 11/11/19at 15:15; Start 11/11/19 at 15:15; Stop 11/11/19 at 15:16; Status DC Heparin Sodium (Porcine) (Heparin Sodium) 2,500 unit 1X ONCE IART Last administered on 11/11/19at 15:15; Start 11/11/19 at 15:15; Stop 11/11/19 at 15:16; Status DC Heparin Sodium/ Sodium Chloride (HEPARIN for ARTERIAL LINE FLUSH) 1,000 unit 1X ONCE IART Last administered on 11/11/19at 15:15; Start 11/11/19 at 15:15; Stop 11/11/19 at 15:16; Status DC Heparin Sodium/ Sodium Chloride (HEPARIN for ARTERIAL LINE FLUSH) 1,000 unit 1X ONCE IART Last administered on 11/11/19at 15:15; Start 11/11/19 at 15:15; Stop 11/11/19 at 15:16; Status DC Midazolam HCl (Versed) 2 mg 1X ONCE IV ; Start 11/11/19 at 15:15; Stop 11/11/19 at 15:16; Status Cancel Fentanyl Citrate (Fentanyl 2ml Vial) 100 mcg 1X ONCE IV ; Start 11/11/19 at 15:15; Stop 11/11/19 at 15:16; Status Cancel Iohexol (Omnipaque 300 Mg/ml) 100 ml 1X ONCE IART Last administered on 11/11/19at 15:15; Start 11/11/19 at 15:15; Stop 11/11/19 at 15:16; Status DC Lidocaine HCl (Xylocaine-Mpf 1% 2ml Vial) 2 ml 1X ONCE INJ Last administered on 11/11/19at 15:15; Start 11/11/19 at 15:15; Stop 11/11/19 at 15:16; Status DC Fentanyl Citrate (Fentanyl 5ml Vial) 250 mcg STK-MED ONCE .ROUTE ; Start 11/11/19 at 15:12; Stop 11/11/19 at 15:12; Status DC Midazolam HCl (Versed) 5 mg STK-MED ONCE .ROUTE ; Start 11/11/19 at 15:12; Stop 11/11/19 at 15:12; Status DC Heparin Sodium (Porcine) (Heparin Sodium) 10,000 unit STK-MED ONCE .ROUTE ; Start 11/11/19 at 15:12; Stop 11/11/19 at 15:12; Status DC Verapamil HCl (Verapamil) 5 mg STK-MED ONCE .ROUTE ; Start 11/11/19 at 15:12; Stop 11/11/19 at 15:12; Status DC Nitroglycerin (Nitroglycerin) 200 mcg STK-MED ONCE .ROUTE ; Start 11/11/19 at 15:12; Stop 11/11/19 at 15:13; Status DC Info (CONTRAST GIVEN -- Rx MONITORING) 1 each PRN DAILY PRN MC SEE COMMENTS; Start 11/11/19 at 15:15; Stop 11/13/19 at 15:14 Midazolam HCl (Versed) 5 mg 1X ONCE IV Last administered on 11/11/19at 16:00; Start 11/11/19 at 16:00; Stop 11/11/19 at 16:01; Status DC Fentanyl Citrate (Fentanyl 5ml Vial) 250 mcg 1X ONCE IV Last administered on 11/11/19at 16:00; Start 11/11/19 at 16:00; Stop 11/11/19 at 16:01; Status DC Sodium Chloride (Normal Saline Flush) 3 ml QSHIFT PRN IV AFTER MEDS AND BLOOD D RAWS; Start 11/11/19 at 16:15 Hydralazine HCl (Apresoline) 50 mg TID PO Last administered on 11/12/19at 20:43; Start 11/12/19 at 14:00; Stop 11/13/19 at 08:18; Status DC Hydralazine HCl (Apresoline) 100 mg TID PO ; Start 11/13/19 at 09:00; Stop 11/13/19 at 08:42; Status DC Nifedipine (Procardia Xl) 60 mg BID PO ; Start 11/13/19 at 09:00; Stop 11/13/19 at 08:42; Status DC Clonidine HCl (Catapres Tts-2) 1 patch WEEKLY TD Last administered on 11/13/19at 09:38; Start 11/13/19 at 09:00 Hydralazine HCl (Apresoline) 100 mg TID PO ; Start 11/13/19 at 14:00 Nifedipine (Procardia Xl) 60 mg BID PO ; Start 11/13/19 at 21:00 Hydralazine HCl (Apresoline) 50 mg 1X PO ; Start 11/13/19 at 08:45; Status Cancel Hydralazine HCl (Apresoline) 50 mg 1X ONCE PO Last administered on 11/13/19at 09:49; Start 11/13/19 at 10:00; Stop 11/13/19 at 10:01; Status DC Labetalol HCl (Trandate) 200 mg BID PO Last administered on 11/13/19at 11:09; Start 11/13/19 at 11:00 Active Scripts Active Reported Hydralazine Hcl 25 Mg Tablet 1 Tab PO BID Protonix (Pantoprazole Sodium) 20 Mg Tablet.dr 40 Mg PO DAILY Losartan Potassium 100 Mg Tablet 100 Mg PO DAILY Hydrochlorothiazide Tablet (Hydrochlorothiazide) 25 Mg Tablet 2 Tab PO DAILY Metoprolol Tartrate 100 Mg Tablet 1.5 Tab PO BID Nifedipine Er (Nifedipine) 90 Mg Tab.er.24 90 Mg PO HS Venlafaxine Hcl Er (Venlafaxine Hcl) 75 Mg Cap.er.24h 1 Cap PO HS Clonidine Hcl 0.2 Mg Tablet 0.2 Mg PO PRN DAILY PRN Clonidine Hcl 0.2 Mg Tablet 1 Tab PO QHS Allergies Allergies: Coded Allergies: No Known Drug Allergies (Unverified , 12/24/17) ROS General: YES: Fatigue Eyes: Yes Decreased vision ALLERGY AND IMMUNOLOGY: YES: Seasonal Allergies Respiratory: YES: Cough, Shortness of breath Cardiovascular: yes Chest Pain Gastrointestinal: Yes Constipation Genitourinary: YES Retention Musculoskeletal: Yes Muscular Weakness Neurological: Yes Weakness Skin: Yes Dry Skin Physical Exam General: Alert, Oriented X3, Cooperative, No acute distress HEENT: Atraumatic, PERRLA, EOMI Lungs: Clear to auscultation Heart: Regular rate, Normal S2 Abdomen: Normal bowel sounds, Soft, No tenderness Extremities: No cyanosis Skin: No breakdown Neuro: Normal speech, Sensation intact Psych/Mental Status: Mental status NL, Mood NL MUSCULOSKELETAL: No joint tenderness, No deformity Vitals VITALS Vital Signs Date Time Temp Pulse Resp B/P (MAP) Pulse Ox O2 Delivery O2 Flow Rate FiO2 11/13/19 11:09 75 200/102 11/13/19 10:24 97.9 18 92 Room Air 97.9 Labs Labs Laboratory Tests Test 11/11/19 16:27 11/11/19 21:12 11/12/19 07:54 11/12/19 09:20 Glucose (Fingerstick) 147 mg/dL (70-99) 281 mg/dL (70-99) 235 mg/dL (70-99) White Blood Count 8.2 x10^3/uL (4.0-11.0) Red Blood Count 5.66 x10^6/uL (4.30-5.70) Hemoglobin 17.4 g/dL (13.0-17.5) Hematocrit 50.2 % (39.0-53.0) Mean Corpuscular Volume 89 fL (79-100) Mean Corpuscular Hemoglobin 31 pg (25-35) Mean Corpuscular Hemoglobin Concent 35 g/dL (31-37) Red Cell Distribution Width 15.1 % (11.5-14.5) Platelet Count 203 x10^3/uL (140-400) Sodium Level 140 mmol/L (136-145) Potassium Level 3.5 mmol/L (3.5-5.1) Chloride Level 102 mmol/L (98-107) Carbon Dioxide Level 29 mmol/L (21-32) Anion Gap 9 (6-14) Blood Urea Nitrogen 17 mg/dL (8-26) Creatinine 1.0 mg/dL (0.7-1.3) Estimated GFR (Cockcroft-Gault) 81.2 BUN/Creatinine Ratio 17 (6-20) Glucose Level 258 mg/dL (70-99) Calcium Level 8.8 mg/dL (8.5-10.1) Total Bilirubin 0.6 mg/dL (0.2-1.0) Aspartate Amino Transf (AST/SGOT) 85 U/L (15-37) Alanine Aminotransferase (ALT/SGPT) 171 U/L (16-63) Alkaline Phosphatase 69 U/L (46-116) Total Protein 7.9 g/dL (6.4-8.2) Albumin 3.8 g/dL (3.4-5.0) Albumin/Globulin Ratio 0.9 (1.0-1.7) Test 11/12/19 12:10 11/12/19 17:39 11/12/19 21:07 11/13/19 07:18 Glucose (Fingerstick) 216 mg/dL (70-99) 219 mg/dL (70-99) 166 mg/dL (70-99) 205 mg/dL (70-99) Test 11/13/19 11:48 Glucose (Fingerstick) 302 mg/dL (70-99) Laboratory Tests Test 11/12/19 17:39 11/12/19 21:07 11/13/19 07:18 11/13/19 11:48 Glucose (Fingerstick) 219 mg/dL (70-99) 166 mg/dL (70-99) 205 mg/dL (70-99) 302 mg/dL (70-99) Assessment/Plan Assessment/Plan IMP UNCONTROLLED HTN BILATERAL HYDRONEPHROSIS URINARY RETENTION PER HX CHEST PAIN WITH NL LV FUNCTION AND NL CATH HYPOKALEMIA DM II PLAN CONT ANTIHYPERTENSIVES REPLACE K NEEDED CT ABD AND PELVIS TO LOOK FOR ADRENAL MASS AND TO LOOK FOR POSSIBLE EXTRINSIC URETERAL COMPRESSION ALSO BLADDER SCAN MAY NEED PANCHO/PRA RATIO DONE MAY NEED TO RESUME PO CLONIDINE IT WOULD HAVE BETTER BIOAVAILABILITY WILL FOLLOW WOODY CASTRO MD Nov 13, 2019 13:43
[2019-11-13] MEDS: FUROSEMIDE 40 MG TABLET. PO SCH (14:24)
[2019-11-13 14:31] VITALS: BP 186/98
--- NOTE | 2019-11-13 16:59 | RAD ---
CT STUDY OF THE ABDOMEN AND PELVIS WITHOUT CONTRAST CLINICAL INDICATIONS:Hydronephrosis of the left side seen on recent renal sonogram. TECHNIQUE: Noncontrast helical CT scanning of the abdomen and pelvis was performed. Without contrast, the sensitivity to detect organ pathology and GI tract pathology is decreased. PQRS compliance Statement One or more of the following individualized dose reduction techniques were utilized for this study: 1. Automated exposure control 2. Adjustment of the mA and/or kV according to patient size 3. Use of iterative reconstruction technique COMPARISON: Renal sonogram dated November 13, 2019. FINDINGS: The liver and spleen and pancreas are homogeneous in appearance on this noncontrast study. The spleen is mildly enlarged measuring 14.8 cm in size. The gallbladder is normal and no extrahepatic biliary ductal dilatation is seen. No renal stone or ureteral stone is seen on either side. Mild left-sided hydronephrosis is seen down to the UPJ. No hydroureter is evident. No renal mass is seen on either side on this noncontrast study. No perinephric inflammation or free fluid is evident. The urinary bladder is not abnormally distended. Urinary bladder wall is smooth. No focal aneurysmal dilatation of the abdominal aorta is seen. No enlarged abdominal or pelvic lymphadenopathy is evident. The appendix and terminal ileum are normal. No obstructive bowel pattern is seen. Umbilical hernia is seen containing only fat. No inflammation is seen here. No free fluid or free air or mesenteric edema is evident. Subcutaneous soft tissue air is seen within the left side of the abdomen which may be related to subcutaneous injections. Calcified granuloma of the right lower lobe is seen. No lytic process is seen. IMPRESSION: Mild left-sided hydronephrosis down to the UPJ. No urinary tract stone or hydroureter is seen. Mild splenomegaly. Electronically signed by: Gordon Torres MD (11/13/2019 4:56 PM) [id number]
[2019-11-13 19:55] VITALS: BP 191/90
[2019-11-13] MEDS: ATORVASTATIN CALCIUM 20 MG TABLET PO SCH (21:16)
[2019-11-13 23:40] VITALS: BP 169/98
[2019-11-14 03:40] VITALS: BP 146/89
[2019-11-14 07:00] VITALS: BP 183/111
[2019-11-14 09:10] LABS: CALCIUM 9.1 mg/dL (8.5-10.1); GFR 81.2; MAGNESIUM 2.1 mg/dL (1.8-2.4); POTASSIUM 3.4 mmol/L (3.5-5.1)
--- NOTE | 2019-11-14 09:35 | PN ---
DATE: SUBJECTIVE: The patient is resting, slightly propped up, sleeping comfortably, in no apparent distress. On questioning him, he stated his headache is much less and not any shortness of breath, has been up and about. He was seen by Dr. Sharma yesterday who ordered a CT scan of the abdomen and pelvis, which showed that the patient has mild left-sided hydronephrosis down to ureteropelvic junction, but no urinary tract stones or hydroureter is seen. He has mild splenomegaly. His renal artery duplex showed trace right and moderate left hydronephrosis. The ureteral jets are both seen. He has small simple appearing right renal cyst, no Doppler evidence of greater than 60% stenosis involving the renal arteries. I did adjust his medication yesterday and increased his hydralazine and he is now on losartan. He is on nifedipine 60 mg twice a day, hydralazine 100 mg three times a day, labetalol 200 mg twice a day, clonidine patch TTS-2 and losartan 100 mg once a day. PHYSICAL EXAMINATION: GENERAL: When I examined him this morning, he looked well and was clearly in no apparent respiratory distress. No pallor, jaundice, cyanosis or thyromegaly. No jugular venous distention. No limb edema. VITAL SIGNS: His heart rate was 90, blood pressure was 146/89, temperature 98.3, respiratory rate was 20, and oxygen saturation was 96%. The rest of clinical exam is stable. ASSESSMENT: 1. Chest pain with normal coronary arteries and echocardiogram showed normal left ventricular systolic function. 2. Acute on chronic diastolic congestive heart failure seems to be much better controlled. 3. Accelerated hypertension for which we made adjustment of his antihypertensive medications. He is now on hydralazine 100 mg three times a day, Procardia 60 mg twice a day, labetalol 200 mg twice a day, losartan potassium 100 mg once a day. He is also on clonidine TTS patch. 4. Hyperlipidemia for which he is on statin. 5. Type 2 diabetes mellitus, seems to be reasonably controlled. 6. Hypokalemia, resolved. MAREN VARGAS MD DR: BRANDI/venecia JOB#: [id number] / [id number]
[2019-11-14] MEDS: ASPIRIN ENTERIC COATED 81 MG TABLET.DR. PO SCH (10:01)
[2019-11-14] MEDS: PANTOPRAZOLE 40 MG TABLET.DR. PO SCH (10:02)
[2019-11-14] MEDS: LOSARTAN POTASSIUM 50 MG TABLET. PO SCH (10:02)
[2019-11-14] MEDS: POTASSIUM CHLORIDE 20 MEQ TABLET.ER. PO SCH ×3 (10:03→18:09)
[2019-11-14] MEDS: LABETALOL HCL 200 MG TABLET PO SCH ×2 (10:03→22:01)
[2019-11-14] MEDS: FUROSEMIDE 40 MG TABLET. PO SCH (10:03)
[2019-11-14] MEDS: ENOXAPARIN 40 MG/0.4 ML SYRINGE. SQ SCH ×2 (10:04→22:03)
[2019-11-14] MEDS: INSULIN LISPRO 300 UNITS/3 ML VIAL. SQ SCH ×3 (10:09→18:23)
[2019-11-14] MEDS: ACETAMINOPHEN 500 MG TABLET PO PRN (10:11)
[2019-11-14 11:00] VITALS: BP 185/98
--- NOTE | 2019-11-14 12:57 | PDOC ---
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 1257: CARDIO Progress Notes Date and Time Date of Service 11/14/19 Time of Evaluation 1215 Subjective Subjective: No Chest Pain, No Palpitations, No Dizziness, Other (feels sightly more SOA this morning) Vitals Vitals Vital Signs Date Time Temp Pulse Resp B/P (MAP) Pulse Ox O2 Delivery O2 Flow Rate FiO2 11/14/19 11:00 98.4 96 18 185/98 (127) 93 Room Air 98.4 Weight Weight [ ] Input and Output Intake and Output Intake and Output 11/14/19 07:00 Intake Total 3540 ml Output Total 1550 ml Balance 1990 ml Intake Oral 3540 ml Output Urine Total 1550 ml Laboratory Labs Laboratory Tests Test 11/13/19 16:47 11/13/19 21:21 11/14/19 08:13 11/14/19 08:40 Glucose (Fingerstick) 285 mg/dL (70-99) 221 mg/dL (70-99) 223 mg/dL (70-99) Sodium Level 141 mmol/L (136-145) Potassium Level 3.4 mmol/L (3.5-5.1) Chloride Level 103 mmol/L (98-107) Carbon Dioxide Level 29 mmol/L (21-32) Anion Gap 9 (6-14) Blood Urea Nitrogen 17 mg/dL (8-26) Creatinine 1.0 mg/dL (0.7-1.3) Estimated GFR (Cockcroft-Gault) 81.2 Glucose Level 232 mg/dL (70-99) Calcium Level 9.1 mg/dL (8.5-10.1) Magnesium Level 2.1 mg/dL (1.8-2.4) Test 11/14/19 12:08 Glucose (Fingerstick) 243 mg/dL (70-99) Physical Exam HEENT: Neck Supple W Full Motion Chest: Symmetric LUNGS: Clear to Auscultation Heart: S1S2, RRR Abdomen: Soft N/T Extremities: Other (trace bilateral LE edema) Neurology: alert, oriented, follow commands Assessment Assessment 1. Chest pain; Echo showed normal LV systolic function. Cath showed no significant coronary artery disease 2. Acute on chronic probable diastolic CHF; compensated following diuresis. 3. Accelerated hypertension; remains elevated. 4. Hyperlipidemia: Continue statin therapy 5. Diabetes, II: Per IM 6. Hypokalemia: Replaced 7. Left-sided hydronephrosis, mild Recommendations Lasix therapy Add imdur Increase labetalol if BP remains elevated Will discuss further with primary cardiology KALEB MAY MD 11/14/192056: CARDIO Progress Notes Assessment Assessment Patient seen and examined. Agree with TEACHING ASSOCIATE's assessment and plan. Ac on chr diast HF better compensated BP continues to be elevated - suspect primary hyperaldosteronism due to resistant HTN and hypokalemia Check renin and pawel levels and start spironolactone MAYRA JOAQUIN APRN Nov 14, 2019 12:57 KALEB MAY MD Nov 14, 2019 20:57
[2019-11-14] MEDS: ISOSORBIDE MONONITRATE ER 30 MG TAB.ER.24H PO SCH (14:35)
--- NOTE | 2019-11-14 14:47 | PDOC ---
Renal-Progress Notes Subjective Notes Notes NO NEW COMPLAINTS History of Present Illness Hx of present illness STABLE Vitals Vitals Vital Signs Date Time Temp Pulse Resp B/P (MAP) Pulse Ox O2 Delivery O2 Flow Rate FiO2 11/14/19 14:35 96 185/98 11/14/19 11:00 98.4 18 93 Room Air 98.4 Weight Weight [ ] I.O. Intake and Output Intake and Output 11/14/19 07:00 Intake Total 3540 ml Output Total 1550 ml Balance 1990 ml Intake Oral 3540 ml Output Urine Total 1550 ml Labs Labs Laboratory Tests Test 11/13/19 16:47 11/13/19 21:21 11/14/19 08:13 11/14/19 08:40 Glucose (Fingerstick) 285 mg/dL (70-99) 221 mg/dL (70-99) 223 mg/dL (70-99) Sodium Level 141 mmol/L (136-145) Potassium Level 3.4 mmol/L (3.5-5.1) Chloride Level 103 mmol/L (98-107) Carbon Dioxide Level 29 mmol/L (21-32) Anion Gap 9 (6-14) Blood Urea Nitrogen 17 mg/dL (8-26) Creatinine 1.0 mg/dL (0.7-1.3) Estimated GFR (Cockcroft-Gault) 81.2 Glucose Level 232 mg/dL (70-99) Calcium Level 9.1 mg/dL (8.5-10.1) Magnesium Level 2.1 mg/dL (1.8-2.4) Test 11/14/19 12:08 Glucose (Fingerstick) 243 mg/dL (70-99) Review of Systems Constitutional: yes: alert, oriented Ears/Nose/Throat: Yes: no symptom reported Eyes: Yes: no symptom reported Pulmonary: Yes no symptom reported Cardiovascular: Yes no symptom reported Gastrointestional: Yes: no symptom reported Genitourinary: Yes: no symptom reported Musculoskeletal: Yes: no symptom reported Skin: Yes no symptom reported Psychiatric/Neurological: Yes: no symptom reported Endocrine: Yes: no symptom reported Physical Exam General Appearance: no apparent distress Skin: warm Respiratory: bilateral CTA Heart: S1S2 Abdomen: bowel sounds present Genitourinary: bladder flat Neurology: alert, oriented, follow commands Assessment Assessment IMP UNCONTROLLED HTN MILD LEFT HYDRONEPHROSIS-CT NEG-NON FUNCTIONAL-NO REPORT OF ADRENAL MASS URINARY RETENTION PER HX-BLADDER SCAN MIN CHEST PAIN WITH NL LV FUNCTION AND NL CATH HYPOKALEMIA DM II PLAN CONT ANTIHYPERTENSIVES REPLACE K NEEDED PANCHO/PRA RATIO AND 24 HR URINE FOR ALDOSTERONE ORDERED ADD PO CLONIDINE IF SUGGESTIVE OF PRIMARY HYPERALDO STATE THEN WILL NEED TO HAVE BILATERAL ADRENAL VEIN SAMPLING DONE WILL FOLLOW WOODY CASTRO MD Nov 13, 2019 13:43 WOODY CASTRO MD Nov 14, 2019 14:47
[2019-11-14 15:00] VITALS: BP 184/92
--- NOTE | 2019-11-14 15:20 | NUR ---
SS following up with discharge planning. No discharge needs noted at this time. SS will continue to follow for discharge planning.
[2019-11-14] MEDS: cloNIDine HCL 0.2 MG TABLET PO SCH ×2 (16:59→22:01)
[2019-11-14] MEDS ORDERED: POTASSIUM CHLORIDE 20 MEQ TABLET.ER. PO ONE (17:00)
[2019-11-14] MEDS ORDERED: FUROSEMIDE 40 MG/4 ML VIAL. IVP ONE (17:00)
[2019-11-14] MEDS: SPIRONOLACTONE 25 MG TABLET PO SCH (18:10)
[2019-11-14 19:55] VITALS: BP 149/79
[2019-11-14] MEDS: ATORVASTATIN CALCIUM 20 MG TABLET PO SCH (22:01)
[2019-11-14 22:57] VITALS: BP 177/101
[2019-11-15 03:00] VITALS: BP 155/96
[2019-11-15 07:00] VITALS: BP 182/99
[2019-11-15] MEDS: PANTOPRAZOLE 40 MG TABLET.DR. PO SCH (07:58)
[2019-11-15] MEDS: cloNIDine HCL 0.2 MG TABLET PO SCH ×2 (07:59→15:59)
[2019-11-15] MEDS: SPIRONOLACTONE 25 MG TABLET PO SCH (08:01)
[2019-11-15] MEDS: ENOXAPARIN 40 MG/0.4 ML SYRINGE. SQ SCH (08:06)
[2019-11-15] MEDS: POTASSIUM CHLORIDE 20 MEQ TABLET.ER. PO SCH ×3 (08:29→17:55)
[2019-11-15] MEDS: ASPIRIN ENTERIC COATED 81 MG TABLET.DR. PO SCH (08:29)
[2019-11-15] MEDS: INSULIN LISPRO 300 UNITS/3 ML VIAL. SQ SCH ×3 (08:36→18:13)
[2019-11-15] MEDS: LOSARTAN POTASSIUM 50 MG TABLET. PO SCH (10:06)
[2019-11-15] MEDS: FUROSEMIDE 40 MG TABLET. PO SCH (10:07)
[2019-11-15] MEDS: LABETALOL HCL 200 MG TABLET PO SCH (10:08)
[2019-11-15 11:00] VITALS: BP 119/68
[2019-11-15] MEDS: ISOSORBIDE MONONITRATE ER 30 MG TAB.ER.24H PO SCH (11:06)
--- NOTE | 2019-11-15 11:14 | PDOC ---
Renal-Progress Notes Subjective Notes Notes NO COMPLAINTS History of Present Illness Hx of present illness STABLE Vitals Vitals Vital Signs Date Time Temp Pulse Resp B/P (MAP) Pulse Ox O2 Delivery O2 Flow Rate FiO2 11/15/19 11:06 89 143/83 11/15/19 08:00 Room Air 11/15/19 07:00 97.4 18 95 97.4 11/14/19 08:00 2.0 Weight Weight [ ] I.O. Intake and Output Intake and Output 11/15/19 07:00 Intake Total 2340 ml Output Total 2050 ml Balance 290 ml Intake Oral 2340 ml Output Urine Total 2050 ml Labs Labs Laboratory Tests Test 11/14/19 12:08 11/14/19 17:22 11/14/19 21:27 11/15/19 08:16 Glucose (Fingerstick) 243 mg/dL (70-99) 296 mg/dL (70-99) 308 mg/dL (70-99) 217 mg/dL (70-99) Review of Systems Constitutional: yes: alert, oriented Ears/Nose/Throat: Yes: no symptom reported Eyes: Yes: no symptom reported Pulmonary: Yes no symptom reported Cardiovascular: Yes no symptom reported Gastrointestional: Yes: no symptom reported Genitourinary: Yes: no symptom reported Musculoskeletal: Yes: no symptom reported Skin: Yes no symptom reported Psychiatric/Neurological: Yes: no symptom reported Endocrine: Yes: no symptom reported Physical Exam General Appearance: no apparent distress Skin: warm Respiratory: bilateral CTA Heart: S1S2 Abdomen: bowel sounds present Genitourinary: bladder flat Neurology: alert, oriented, follow commands Assessment Assessment IMP UNCONTROLLED HTN-IMPROVED MILD LEFT HYDRONEPHROSIS-CT NEG-NON FUNCTIONAL-NO REPORT OF ADRENAL MASS URINARY RETENTION PER HX-BLADDER SCAN MIN CHEST PAIN WITH NL LV FUNCTION AND NL CATH HYPOKALEMIA DM II PLAN CONT ANTIHYPERTENSIVES REPLACE K NEEDED PANCHO/PRA RATIO AND 24 HR URINE FOR ALDOSTERONE ORDERED CONT PO CLONIDINE IF SUGGESTIVE OF PRIMARY HYPERALDO STATE THEN WILL NEED TO HAVE BILATERAL ADR ENAL VEIN SAMPLING DONE CURRENTLY BP CONTROL ADEQUATE WILL NOT HAVE RESULTS OF PANCHO/PRA FOR AT LEAST A WEEK OR SO OK TO D/C AFTER 24 HR URINE COLLECTION WITH CURRENTLY MEDS AND THEN OP F/U WITH US IN 4-6 WEEKS WOODY CASTRO MD Nov 13, 2019 13:43 WOODY CASTRO MD Nov 15, 2019 11:14
--- NOTE | 2019-11-15 11:18 | PDOC ---
MASON CURRY [employer] 11/15/19 1118: CARDIO Progress Notes Date and Time Date of Service 11/15/2019 Time of Evaluation 0940 Subjective Subjective: No Chest Pain, No shortness of breath, No Palpitations, Other (has KIMBLE sometimes) Vitals Vitals Vital Signs Date Time Temp Pulse Resp B/P (MAP) Pulse Ox O2 Delivery O2 Flow Rate FiO2 11/15/19 11:06 89 143/83 11/15/19 08:00 Room Air 11/15/19 07:00 97.4 18 95 97.4 11/14/19 08:00 2.0 Weight Weight [ ] Input and Output Intake and Output Intake and Output 11/15/19 07:00 Intake Total 2340 ml Output Total 2050 ml Balance 290 ml Intake Oral 2340 ml Output Urine Total 2050 ml Laboratory Labs Laboratory Tests Test 11/14/19 12:08 11/14/19 17:22 11/14/19 21:27 11/15/19 08:16 Glucose (Fingerstick) 243 mg/dL (70-99) 296 mg/dL (70-99) 308 mg/dL (70-99) 217 mg/dL (70-99) Review of Systems Constitutional: yes: alert, oriented Ears/Nose/Throat: Yes: no symptom reported Eyes: Yes: no symptom reported Pulmonary: Yes no symptom reported Cardiovascular: Yes no symptom reported Gastrointestional: Yes: no symptom reported Genitourinary: Yes: no symptom reported Musculoskeletal: Yes: no symptom reported Skin: Yes no symptom reported Psychiatric/Neurological: Yes: no symptom reported Endocrine: Yes: no symptom reported Physical Exam HEENT: Neck Supple W Full Motion Chest: Symmetric LUNGS: Clear to Auscultation Heart: S1S2, RRR (SR) Abdomen: Soft N/T Extremities: Other (trace bilateral LE edema) Neurology: alert, oriented, follow commands Assessment Assessment 1. Chest pain; likely from HTN. LHC revealed no CAD 2. Acute on chronic probable diastolic CHF; compensated following diuresis. 3. Accelerated hypertension; labile 4. Hyperlipidemia: Continue statin therapy 5. Diabetes, II: Per IM 6. Hypokalemia: Replaced. Will rule out primary hyperaldosteronism. CT unrevealing for adrenal adenoma or pheo 7. Left-sided hydronephrosis, mild Recommendations 1. Continue current BP regimen. New are imdur and aldactone. Renin/aldosterone results are pending which will likely not be availble till next week. Discussed with pt. 2. Could consider workup for pheo if tests remains inconclusive and if BP remains uncontrolled 3. Lasix therapy 4. 24 urine pending KALEB MAY MD 11/16/19 0814: CARDIO Progress Notes Assessment Assessment Patient seen and examined 11/15/19. Agree with [employer] [facility]'s assessment and plan. Ac on chr diast HF better compensated BP better controlled with spironolactone - suspect primary hyperaldo - will follow up on renin/pawel levels OK for DC - FU as scheduled MASON CURRY APRN Nov 15, 2019 11:18 KALEB MAY MD Nov 16, 2019 08:14
[2019-11-15 13:12] VITALS: BP 113/56
--- NOTE | 2019-11-15 13:19 | PN ---
DATE: 11/15/2019 SUBJECTIVE: The patient is resting slightly propped up in bed, in his recliner, in no apparent respiratory distress. He is awake and alert. On questioning him, he denies any complaint. In particular, he has no further episode of chest pain or shortness of breath. His blood pressure continued to be suboptimally controlled despite all the antihypertensive medication. He has a 24-hour urine collection for aldosterone and plasma renin activity. PHYSICAL EXAMINATION: GENERAL: When I examined him this morning, he looked well and was clearly in no apparent respiratory distress. No pallor, jaundice, cyanosis, or thyromegaly. No jugular venous distention. No limb edema. VITAL SIGNS: His heart rate was 97, blood pressure was 182/99, temperature was 97.4, respiratory rate was 18, and oxygen saturation was 95% on room air. HEAD, EYES, EARS, NOSE, AND THROAT: Showed normocephalic and atraumatic. NECK: Supple. HEART: Showed normal first and second heart sounds. No gallop, rub, or murmur. CHEST: Clear to auscultation. No crepitation or rhonchi. ABDOMEN: Distended, soft, and nontender. NEUROLOGIC: He was awake, alert, and responding appropriately. All cranial nerves intact. He moves extremities without difficulty. He ambulates without assistance or assistive devices. LABORATORY DATA: His intake over the last 24 hours was 3540 and output was 1550. As of yesterday, his serum sodium was 141, potassium 3.4, chloride 103, bicarbonate 29, anion gap of 9, BUN 17, and creatinine 1. Estimated GFR was 81 mL per minute. His glucose was 132. Calcium was 9.1. Magnesium was 2.1. His white cell count was 8200, hemoglobin 17, hematocrit 50, MCV 89, and platelet count 203,000. ASSESSMENT: 1. Chest pain with normal coronary arteries. An echocardiogram showing normal left ventricular systolic function. 2. Vicgk-by-qxiylys diastolic congestive heart failure, seems to be much better controlled. 3. Accelerated hypertension for which we made adjustment to his antihypertensive medication. Despite all this antihypertensive medication, he continued to have elevated blood pressure for which he has 24-hour urine collection for aldosterone and plasma renin activity. 4. Hyperlipidemia for which he is on statin. 5. Type 2 diabetes mellitus, seems to be reasonably controlled. 6. Hypokalemia, resolved. PLAN: Plan is obviously to continue with antihypertensive medication. Await the 24-hour urine collection, and we will obviously decide on further management accordingly. MAREN VARGAS MD DR: BRANDI/venecia JOB#: [id number] / [id number]
[2019-11-15 15:00] VITALS: BP 134/65
[2019-11-15 15:59] VITALS: BP 133/68
[2019-11-15] MEDS ORDERED: CLON0.2T PO (17:27)
[2019-11-15] MEDS ORDERED: ISOS60TA2 PO (17:27)
[2019-11-15] MEDS ORDERED: FURO40TA4 PO (17:27)
[2019-11-15] MEDS ORDERED: LABE200T4 PO (17:27)
[2019-11-15] MEDS ORDERED: LOSA100T14 PO (17:27)
[2019-11-15] MEDS ORDERED: ATOR20TA58 PO (17:27)
[2019-11-15] MEDS ORDERED: ZOLP5TAB PO (17:27)
[2019-11-15] MEDS ORDERED: POTA20TA4 PO (17:27)
[2019-11-15] MEDS ORDERED: PANT40TA77 PO (17:27)
[2019-11-15] MEDS ORDERED: HYDR100T24 PO (17:27)
[2019-11-15] MEDS ORDERED: NIFE60TA PO (17:27)
--- NOTE | 2019-11-15 19:35 | NUR ---
Discharge Note: [facility] [address] [place] [address] Discharge instructions and discharge home medications reviewed with Patient and a copy given. All questions have been answered and understanding verbalized. The following instructions and handouts were given: discharge instructions, post cath info, diet info, HTN info. Discontinued lines and drains: Peripheral IV intact. Patient discharged to Home or Self Care with Family Member via Ambulated at 1935.
== END 2019-11-15 19:35 | disposition home or self-care (01) | DRG 287 ==
LOC: 2 NORTH 21:58
PROVIDERS: ADMIT Internal Medicine; ATTEND Internal Medicine
PROC: 4A023N7 Measurement of Cardiac Sampling and Pressure, Left Heart, Percutaneous Approach (ICD-10-PCS; principal; 2019-11-11)
PROC: B2151ZZ Fluoroscopy of Left Heart using Low Osmolar Contrast (ICD-10-PCS; 2019-11-11)
PROC: B2111ZZ Fluoroscopy of Multiple Coronary Arteries using Low Osmolar Contrast (ICD-10-PCS; 2019-11-11)
DX: I11.0 Hypertensive heart disease with heart failure (principal); Z68.42 Body mass index [BMI] 45.0-49.9, adult; N13.30 Unspecified hydronephrosis; I50.33 Acute on chronic diastolic (congestive) heart failure; E11.9 Type 2 diabetes mellitus without complications; E78.5 Hyperlipidemia, unspecified; E87.6 Hypokalemia; Z79.899 Other long term (current) drug therapy; Z82.49 Family history of ischemic heart disease and other diseases of the circulatory system; Z83.3 Family history of diabetes mellitus; Z87.891 Personal history of nicotine dependence; E66.01 Morbid (severe) obesity due to excess calories
CPT/HCPCS: 36415; 74176; 76770; 80048; 80053; 82088; 82962; 83735; 84244; 85025; 85027; 93458; 99152; 99153; C1769; C1892; J0360; J1644; J1650; J1815; J1940; J2250; J3010; J3490; Q9967; G0378